=== PATIENT | female | born 1990 | race Caucasian/White ===

== ENCOUNTER 2021-12-28 18:14 | Emergency (ER) | payer OTHER ==
--- OUTSIDE RECORDS SUMMARY | 2021-12-28 18:20 | XMS REPORT | Continuity of Care Document ---
:1990 Author Organization [facility] t Address [address] [place] [address] Care Team Providers Name Role Phone Nai Jorgensen Attending Clinician Unavailable Nai Jorgensen Admitting Clinician Unavailable Payers Payer Name Policy Type Policy Number Effective Date Expiration Date S ource Problems This patient has no known problems. Allergies, Adverse Reactions, Alerts Allergy Allergy Status Severity Reaction(s) Onset Inactive Treating Comm ents Source Name Type Date Date Clinician No Known DA Active [facility] [address] [place] [address] No Known DA Active [id number] Medications This patient has no known medications. Procedures Procedure Date / Time Performed Performing Clinician Meka dane [id number] 2020-09-07 00:00:00 [facility]BPR [facility] [id number] 2020-09-07 00:00:00 DEBPR [facility] [id number] 2020-09-07 00:00:00 [facility] Encounters Start End Encounter Admission Attending Care Care Encounter Source Date/Time Date/Time Type Type Clinicians Facility Department ID 2020-09-06 Inpatient EL ANH Jorgensen LD [id number] [facility] 11:30:00 Nai Charles [facility] 2020-09-07 2020-09-10 Inpatient EM ANH Jorgensen OBPP [id number] [facility] 18:56:00 13:45:00 Nai Bonner [facility] Results Test Description Test Time Test Comments Results Result Comments Source FALLOPIAN TUBE,STERILIZATION 2020-09-09 12:54:00 Test Item Value Reference Range Interpretation Susan yost FALLOPIAN RUN TUBE,STERILIZATION DATE: 09/09/20 [facility] PAGE 1 RUN TIME: 5847 Specimen Inquiry RUN USER: INTERFACE (test code = ADELITA DAVIS) NT: BEKAH NINO CCT #: [id number] LOC: LilliKALANI U #: [id number] AGE/SX: 30/F ROOM: [facility] RE09/07/20JAKE DR: Nai Jorgensen MD : 86 BED: A DIS: STATUS: ADM IN TLOC: SPEC #: [id number] RECD: STATUS: KYARA RESarabjit #: [id number] CORBIN: 09/07/20- SUBM DR: Nai Jorgensen MD ENTERED: 09/08/20 SP TYPE: [facility]: ORDERED: LEVEL II SURGIC/2 CODES: [id number] - FALLOPIAN TU BE PROCEDURES: LEVEL II SURGIC (Incomplete) TISSUES: FALLOPIAN TUBE, NOS - RIGHT,LEFT FALLOPIAN T UBES CLINICAL HISTORY 30 year old, BTL (toma) FINAL DIAGNOSIS Right fallopian tube, salpingectom y: - unremarkable, completely transected fallopian tube Left fallopian tube, salpingectom y: - unremarkable, completely transected fallopian tube CPT: 25079 x2 ssa/wpd GROSS DESCRIPTION AN ATOMIC SOURCE OF TISSUE (per Requisition): Fallopian tube (2 containers) Each specimen is labeled with the patient's name and medical record number. Specimen #1 is designated "right fall opian tube" and consists of a 6.5 x 0.6 cm arreaga-pink fallopian tube segment with fimbriae. Secti oning reveals a pinpoint lumen. Section Leader sections are submitted in A1 to include entire fimb riae. Specimen #2 is designated "left fallopian tube" and consists of a 6.0 x 0.6 cm arreaga-pink fall opian tube segment with fimbriae. Sectioning reveals a pinpoint lumen. Section Leader sectio ns are submitted in B1 to include entire fimbriae. travis/toma 09/08/20 CONTINUED ON NEXT PAGE RUN DATE: 09/09/20 [facility] PAGE 2 RUN TIME: 7 Specimen Inquiry RUN USER: INTERFACE SPEC #: [id number] PATIENT: BEKAH NINO #[id number] (Continued) ------ Signed Homero Colon 09/09/20 1254 END OF REPORT COMPREHENSIVE METABOLIC [id number] 07:16:00 Test Item Value Reference Range Interpretation Comments SODIUM (test code = NA) 140 mEq/L 135-145 N POTASSIUM (test code = K) 4.5 mEq/L 3.5-5.0 N CHLORIDE (test code = CL) 105 mEq/L 100-115 N CARBON DIOXIDE (test code = CO2) 26 mEq/L 22-31 N ANION GAP (test code = GAP) 14.00 10-20 N GLUCOSE (test code = GLU) 94 mg/dL 65-110 N BLOOD UREA NITROGEN (test code = 12 mg/dL 7-18 N BUN) GLOMERULAR FILTRATION RATE (test 97 ml/min >60 N code = GFR) CREATININE (test code = CREAT) 0.7 mg/dL 0.5-1.0 N TOTAL PROTEIN (test code = PROT) 5.7 gm/dL 6.3-8.2 L ALBUMIN (test code = ALB) 2.3 gm/dL 3.4-4.8 L CALCIUM (test code = CA) 7.5 mg/dL 8.4-10.2 L BILIRUBIN TOTAL (test code = 0.2 mg/dL 0.2-1.0 N BILT) SGOT/AST (test code = AST) 20 units/L 15-37 N SGPT/ALT (test code = ALT) 11 units/L 12-78 L ALKALINE PHOSPHATASE TOTAL (test 231 units/L 46-116 H code = ALKP) CBC W/AUTO [id number] 06:56:00 Test Item Value Reference Range Interpretation Comments WHITE BLOOD CELL (test code = WBC) 15.5 K/mm3 6.5-12.3 H RED BLOOD CELL (test code = RBC) 3.54 M/mm3 3.51-4.69 N HEMOGLOBIN (test code = HGB) 8.9 g/dL 10.1-13.8 L HEMATOCRIT (test code = HCT) 28.5 % 32.5-41.8 L MEAN CELL VOLUME (test code = MCV) 80.5 fL 84.6-96.6 L MEAN CELL HGB (test code = MCH) 25.1 pg 27.3-33.9 L MEAN CELL HGB CONCETRATION (test 31.2 gm/dL 32.0-34.2 L code = MCHC) RED CELL DISTRIBUTION WIDTH (test 17.9 % 12.2-16.3 H code = RDW) PLATELET COUNT (test code = PLT) 168 K/mm3 134-363 N IMMATURE PLATELET FRACTION (test 23.5 % 0.0-10.8 H code = IPF) NEUTROPHIL % (test code = NT%) 73.1 % 57.9-77.3 N LYMPHOCYTE % (test code = LY%) 15.8 % 14.5-29.7 N MONOCYTE % (test code = MO%) 10.1 % 3.6-10.2 N EOSINOPHIL % (test code = EO%) 0.1 % 0.0-3.0 N BASOPHIL % (test code = BA%) 0.2 % 0.1-0.9 N NEUTROPHIL # (test code = NT#) 11.3 K/mm3 LYMPHOCYTE # (test code = LY#) 2.5 K/mm3 MONOCYTE # (test code = MO#) 1.6 K/mm3 EOSINOPHIL # (test code = EO#) 0.02 K/mm3 BASOPHIL # (test code = BA#) 0.0 K/mm3 RBC MORPHOLOGY REQUIRED (test code NORMAL NORMAL = RBCM) PLATELET MORPHOLOGY REQUIRED (test NORMAL NORMAL code = PLTMR) CBC W/AUTO [id number] 18:58:00 Test Item Value Reference Range Interpretation Comments WHITE BLOOD CELL (test code = WBC) 14.8 K/mm3 6.5-12.3 H RED BLOOD CELL (test code = RBC) 3.74 M/mm3 3.51-4.69 N HEMOGLOBIN (test code = HGB) 9.2 g/dL 10.1-13.8 L HEMATOCRIT (test code = HCT) 29.4 % 32.5-41.8 L MEAN CELL VOLUME (test code = MCV) 78.6 fL 84.6-96.6 L MEAN CELL HGB (test code = MCH) 24.6 pg 27.3-33.9 L MEAN CELL HGB CONCETRATION (test 31.3 gm/dL 32.0-34.2 L code = MCHC) RED CELL DISTRIBUTION WIDTH (test 17.5 % 12.2-16.3 H code = RDW) PLATELET COUNT (test code = PLT) 142 K/mm3 134-363 N NEUTROPHIL % (test code = NT%) 76.2 % 57.9-77.3 N LYMPHOCYTE % (test code = LY%) 14.5 % 14.5-29.7 N MONOCYTE % (test code = MO%) 8.3 % 3.6-10.2 N EOSINOPHIL % (test code = EO%) 0.1 % 0.0-3.0 N BASOPHIL % (test code = BA%) 0.2 % 0.1-0.9 N NEUTROPHIL # (test code = NT#) 11.3 K/mm3 LYMPHOCYTE # (test code = LY#) 2.1 K/mm3 MONOCYTE # (test code = MO#) 1.2 K/mm3 EOSINOPHIL # (test code = EO#) 0.02 K/mm3 BASOPHIL # (test code = BA#) 0.0 K/mm3 RBC MORPHOLOGY REQUIRED (test code NORMAL NORMAL = RBCM) PLATELET MORPHOLOGY REQUIRED (test NORMAL NORMAL code = PLTMR) CLOTTED. NOTIFIED [facility] METABOLIC [id number] 17:57:00 Test Item Value Reference Range Interpretation Comments SODIUM (test code = NA) 135 mEq/L 135-145 N POTASSIUM (test code = K) 4.4 mEq/L 3.5-5.0 N CHLORIDE (test code = CL) 103 mEq/L 100-115 N CARBON DIOXIDE (test code = CO2) 21 mEq/L 22-31 L ANION GAP (test code = GAP) 15.40 10-20 N GLUCOSE (test code = GLU) 106 mg/dL 65-110 N BLOOD UREA NITROGEN (test code = 14 mg/dL 7-18 N BUN) GLOMERULAR FILTRATION RATE (test 97 ml/min >60 N code = GFR) CREATININE (test code = CREAT) 0.7 mg/dL 0.5-1.0 N TOTAL PROTEIN (test code = PROT) 5.1 gm/dL 6.3-8.2 L ALBUMIN (test code = ALB) 2.1 gm/dL 3.4-4.8 L CALCIUM (test code = CA) 7.2 mg/dL 8.4-10.2 L BILIRUBIN TOTAL (test code = 0.2 mg/dL 0.2-1.0 N BILT) SGOT/AST (test code = AST) 24 units/L 15-37 N SGPT/ALT (test code = ALT) 12 units/L 12-78 N ALKALINE PHOSPHATASE TOTAL (test 228 units/L 46-116 H code = ALKP) [id number] 17:57:00 Test Item Value Reference Range Interpretation Comments MAGNESIUM (test 5.5 mg/dL 1.8-2.4 HH RESULTS VERI FIED BY code = MAG) REPEAT ANALYSIS RESULTS CALLED TO MARITA BALDERRAMA BACK & CONFIRME D? YES.BY F.LAB.TTT 09/08 6085. COMPREHENSIVE METABOLIC [id number] 07:59:00 Test Item Value Reference Range Interpretation Comments SODIUM (test code = NA) 136 mEq/L 135-145 N POTASSIUM (test code = K) 4.7 mEq/L 3.5-5.0 N CHLORIDE (test code = CL) 105 mEq/L 100-115 N CARBON DIOXIDE (test code = CO2) 21 mEq/L 22-31 L ANION GAP (test code = GAP) 14.50 10-20 N GLUCOSE (test code = GLU) 106 mg/dL 65-110 N BLOOD UREA NITROGEN (test code = 16 mg/dL 7-18 N BUN) GLOMERULAR FILTRATION RATE (test 97 ml/min >60 N code = GFR) CREATININE (test code = CREAT) 0.7 mg/dL 0.5-1.0 N TOTAL PROTEIN (test code = PROT) 5.1 gm/dL 6.3-8.2 L ALBUMIN (test code = ALB) 2.1 gm/dL 3.4-4.8 L CALCIUM (test code = CA) 8.0 mg/dL 8.4-10.2 L BILIRUBIN TOTAL (test code = 0.4 mg/dL 0.2-1.0 BILT) SGOT/AST (test code = AST) 21 units/L 15-37 SGPT/ALT (test code = ALT) 14 units/L 12-78 N ALKALINE PHOSPHATASE TOTAL (test 258 units/L 46-116 H code = ALKP) LACTIC DEHYDROGENASE(LDH)2020-09-08 07:59:00 Test Item Value Reference Range Interpretation Comments LACTIC DEHYDROGENASE(LDH) (test 235 units/L 81-234 H code = LDH) [id number] 07:59:00 Test Item Value Reference Range Interpretation Comments MAGNESIUM (test code = MAG) 4.5 mg/dL 1.8-2.4 H CBC W/AUTO [id number] 07:49:00 Test Item Value Reference Range Interpretation Comments WHITE BLOOD CELL (test 19.7 K/mm3 6.5-12.3 H code = WBC) RED BLOOD CELL (test 3.87 M/mm3 3.51-4.69 N code = RBC) HEMOGLOBIN (test code = 9.5 g/dL 10.1-13.8 L HGB) HEMATOCRIT (test code = 30.1 % 32.5-41.8 L HCT) MEAN CELL VOLUME (test 77.8 fL 84.6-96.6 L code = MCV) MEAN CELL HGB (test code 24.5 pg 27.3-33.9 L = MCH) MEAN CELL HGB 31.6 gm/dL 32.0-34.2 L CONCETRATION (test code = MCHC) RED CELL DISTRIBUTION 17.1 % 12.2-16.3 H WIDTH (test code = RDW) PLATELET COUNT (test 128 K/mm3 134-363 L code = PLT) MEAN PLATELET VOLUME TEST NOT PERFORMED fL 9.2-12.7 (test code = MPV) NEUTROPHIL % (test code 84.1 % 57.9-77.3 H = NT%) LYMPHOCYTE % (test code 7.9 % 14.5-29.7 L = LY%) MONOCYTE % (test code = 6.7 % 3.6-10.2 N MO%) EOSINOPHIL % (test code 0.0 % 0.0-3.0 N = EO%) BASOPHIL % (test code = 0.3 % 0.1-0.9 N BA%) NEUTROPHIL # (test code 16.6 K/mm3 = NT#) LYMPHOCYTE # (test code 1.6 K/mm3 = LY#) MONOCYTE # (test code = 1.3 K/mm3 MO#) EOSINOPHIL # (test code 0 K/mm3 = EO#) BASOPHIL # (test code = 0.1 K/mm3 BA#) RBC MORPHOLOGY REQUIRED NORMAL NORMAL (test code = RBCM) PLATELET MORPHOLOGY NORMAL NORMAL REQUIRED (test code = PLTMR) AG HEPATITIS B [id number] 20:34:00 Test Item Value Reference Range Interpretation Comments AG HEPATITIS B SURFACE (test code NONREACTIVE NONREACTIVE = HBSAG) AB HEPATITIS C [id number] 20:34:00 Test Item Value Reference Range Interpretation Comments AB HEPATITIS C (test code = NONREACTIVE NONREACTIVE HCVAB) SIGNAL TO CUTOFF (test code = <0.02 <0.80 N CUTOFF) AB [id number] 20:34:00 Test Item Value Reference Range Interpretation Comments AB TREPONEMA (test code = TREPAB) NONREACTIVE NONREACTIVE AG HEPATITIS B [id number] 20:03:00 Test Item Value Reference Range Interpretation Comments AG HEPATITIS B SURFACE (test code NONREACTIVE NONREACTIVE = HBSAG) AB HEPATITIS C [id number] 20:03:00 Test Item Value Reference Range Interpretation Comments AB HEPATITIS C (test code = HCVAB) NONREACTIVE SIGNAL TO CUTOFF (test code = CUTOFF) <0.80 AB [id number] 20:03:00 Test Item Value Reference Range Interpretation Comments AB TREPONEMA (test code = TREPAB) NONREACTIVE NONREACTIVE UR PROTEIN/CREATININE [id number] 17:50:00 Test Item Value Reference Range Interpretation Comments UR PROTEIN RANDOM 1251.9 mg/dL (test code = PROTU) UR CREATININE 267.8 mg/dL RANDOM (test code = CREATU) PROTEIN/CREATININE 4674.7 <200 H RESULTS V ERIFIED BY RATIO (test code = mg/gcrea REPEAT AN ALYSISMADE P/CRATIO) DILUTION 1:10RE SULTS CALLED TO ELI Hester ACK & CONFIRMED? YESB Y F.LAB.TTT 09/07 1749 URIC [id number] 17:04:00 Test Item Value Reference Range Interpretation Comments URIC ACID (test code = URIC) 5.7 mg/dL 2.6-6.0 N COMPREHENSIVE METABOLIC [id number] 17:04:00 Test Item Value Reference Range Interpretation Comments SODIUM (test code = NA) 142 mEq/L 135-145 N POTASSIUM (test code = K) 4.4 mEq/L 3.5-5.0 N CHLORIDE (test code = CL) 109 mEq/L 100-115 N CARBON DIOXIDE (test code = CO2) 22 mEq/L 22-31 N ANION GAP (test code = GAP) 15.50 10-20 N GLUCOSE (test code = GLU) 82 mg/dL 65-110 N BLOOD UREA NITROGEN (test code = 19 mg/dL 7-18 H BUN) GLOMERULAR FILTRATION RATE (test 97 ml/min >60 N code = GFR) CREATININE (test code = CREAT) 0.7 mg/dL 0.5-1.0 N TOTAL PROTEIN (test code = PROT) 5.7 gm/dL 6.3-8.2 L ALBUMIN (test code = ALB) 2.4 gm/dL 3.4-4.8 L CALCIUM (test code = CA) 8.4 mg/dL 8.4-10.2 N BILIRUBIN TOTAL (test code = 0.2 mg/dL 0.2-1.0 N BILT) SGOT/AST (test code = AST) 13 units/L 15-37 L SGPT/ALT (test code = ALT) 10 units/L 12-78 L ALKALINE PHOSPHATASE TOTAL (test 312 units/L 46-116 H code = ALKP) CBC W/AUTO [id number] 16:40:00 Test Item Value Reference Range Interpretation Comments WHITE BLOOD CELL (test code = WBC) 8.7 K/mm3 6.5-12.3 N RED BLOOD CELL (test code = RBC) 4.22 M/mm3 3.51-4.69 N HEMOGLOBIN (test code = HGB) 10.4 g/dL 10.1-13.8 N HEMATOCRIT (test code = HCT) 32.6 % 32.5-41.8 N MEAN CELL VOLUME (test code = MCV) 77.3 fL 84.6-96.6 L MEAN CELL HGB (test code = MCH) 24.6 pg 27.3-33.9 L MEAN CELL HGB CONCETRATION (test 31.9 gm/dL 32.0-34.2 L code = MCHC) RED CELL DISTRIBUTION WIDTH (test 16.9 % 12.2-16.3 H code = RDW) PLATELET COUNT (test code = PLT) 120 K/mm3 134-363 L NEUTROPHIL % (test code = NT%) 66.1 % 57.9-77.3 N LYMPHOCYTE % (test code = LY%) 18.4 % 14.5-29.7 N MONOCYTE % (test code = MO%) 13.1 % 3.6-10.2 H EOSINOPHIL % (test code = EO%) 0.5 % 0.0-3.0 N BASOPHIL % (test code = BA%) 0.6 % 0.1-0.9 N NEUTROPHIL # (test code = NT#) 5.8 K/mm3 LYMPHOCYTE # (test code = LY#) 1.6 K/mm3 MONOCYTE # (test code = MO#) 1.1 K/mm3 EOSINOPHIL # (test code = EO#) 0.04 K/mm3 BASOPHIL # (test code = BA#) 0.1 K/mm3 RBC MORPHOLOGY REQUIRED (test code NORMAL NORMAL = RBCM) PLATELET MORPHOLOGY REQUIRED (test NORMAL NORMAL code = PLTMR)
[2021-12-28] MEDS ORDERED: NA CHLORIDE 0.9% 1,000 ML ONE (18:56)
[2021-12-28] MEDS ORDERED: ALBUTEROL 2.5 MG/3 ML NEB SOL ONE (18:56)
[2021-12-28] MEDS ORDERED: IPRATROPIUM BROM 0.5MG/2.5ML ONE (18:56)
[2021-12-28] MEDS ORDERED: dexAMETHasone 10 MG/ML VIAL ONE (18:56)
[2021-12-28] MEDS ORDERED: HYDROCODONE/CHLORPHEN 5 ML/OSYR ONE (18:56)
[2021-12-28 19:41] LABS: Absolute Lymphocytes (CBC) 0.9 K/uL (0.7-4.9); Hematocrit 40.1 % (36.0-45.0); Lymphocytes % 9.7 % (15.3-44.8); MCV 86.9 fL (80-100); MPV 10.5 fL (7.6-11.3); RBC Red Blood Cell Count 4.62 M/uL (3.86-4.86)
[2021-12-28 20:03] LABS: Potassium 3.9 mmol/L (3.5-5.1); Troponin High Sensitivity 3.9 pg/mL (<58.9)
--- NOTE | 2021-12-28 20:15 | RAD REPORT ---
EXAM DESCRIPTION: RAD - Chest Single View - 12/28/2021 8:03 pm CLINICAL HISTORY: SOB COMPARISON: None TECHNIQUE: AP portable chest image was obtained 12/28/2021 8:03 pm . FINDINGS: Lungs are clear. Heart and vasculature are normal. No measurable pleural effusion and no p neumothorax. No acute bony abnormality seen. No acute aortic findings suspected. IMPRESSION: No acute cardiopulmonary process.
--- NOTE | 2021-12-28 20:31 | ER ---
Nurse's Notes [facility] Name: Sam Barbour Age: 31 yrs Sex: Female : 1990 Arrival Date: 12/28/2021 Time: 18:18 Bed 9 Private MD: Diagnosis: Allergic rhinitis, unspecified;Syncope Near Presentation: 12/28 18:28 Chief complaint: Patient states: Around 1500 pt used humidifier \T\ took allergy relief ld1 pill with sinex severe to relieve chest congestion and sinus congestion. After taking medications pt reports getting shaky and lightheaded, turned pale and feels like she could faint. Coronavirus screen: At this time, the client does not indicate any symptoms associated with coronavirus-19. Ebola Screen: No symptoms or risks identified at this time. Initial Sepsis Screen: Does the patient meet any 2 criteria? No. Patient's initial sepsis screen is negative. Does the patient have a suspected source of infection? No. Patient's initial sepsis screen is negative. Risk Assessment: Do you want to hurt yourself or someone else? Patient reports no desire to harm self or others. Onset of symptoms was December 28, 2021 at 18:30. 18:28 Method Of Arrival: Wheelchair ld1 18:28 Acuity: PARKER 3 ld1 Triage Assessment: 18:30 General: Appears in no apparent distress. comfortable, Behavior is calm, cooperative, ld1 appropriate for age. Pain: Denies pain. EENT: No signs and/or symptoms were reported regarding the EENT system. Neuro: Level of Consciousness is awake, alert, obeys commands, Oriented to person, place, time, situation, Appropriate for age. Cardiovascular: Capillary refill < 3 seconds Patient's skin is warm and dry. Respiratory: Reports shortness of breath at rest on exertion Airway is patent Respiratory effort is even, unlabored, Onset: The symptoms/episode began/occurred just prior to arrival, the patient has moderate shortness of breath Denies. GI: Abdomen is round non-distended. : No signs and/or symptoms were reported regarding the genitourinary system. Derm: No signs and/or symptoms reported regarding the dermatologic system. Musculoskeletal: No signs and/or symptoms reported regarding the musculoskeletal system. GIVER: 18:30 LMP 12/28/2021 ld1 Historical: - Allergies: 18:30 No Known Allergies; ld1 - PMHx: 18:30 Pre eclampsia; ld1 - PSHx: 18:30 section; ld1 - Immunization history:: Adult Immunizations up to date, Client reports receiving the 2nd dose of the Covid vaccine. - Social history:: Smoking status: Patient denies any tobacco usage or history of. Patient/guardian denies using alcohol. Screenin:21 Abuse screen: Denies threats or abuse. Nutritional screening: No deficits noted. em6 Tuberculosis screening: No symptoms or risk factors identified. Fall Risk IV access (20 points). Total Mancilla Fall Scale indicates No Risk (0-24 pts). Assessment: 18:45 Reassessment: see triage assessment. Cardiovascular: Patient's skin is warm and dry. em6 Respiratory: Airway is patent Respiratory effort is even, unlabored, Respiratory pattern is regular, symmetrical, Breath sounds are clear bilaterally. 19:39 Cardiovascular: Rhythm is sinus rhythm. em6 19:45 Reassessment: No changes from previously documented assessment. Patient and/or family em6 updated on plan of care and expected duration. Pain level reassessed. Patient is alert, oriented x 3, equal unlabored respirations, skin warm/dry/pink. 20:37 Reassessment: No changes from previously documented assessment. Patient and/or family em6 updated on plan of care and expected duration. Pain level reassessed. Patient is alert, oriented x 3, equal unlabored respirations, skin warm/dry/pink. Patient states symptoms have improved. Vital Signs: 18:28 BP 148 / 94; Pulse 93; Resp 18; Temp 98.1(O); Pulse Ox 99% on R/A; Weight 79.38 kg; ld1 Height 5 ft. 7 in. (170.18 cm); Pain 0/10; 20:55 BP 134 / 85; Pulse 91; Resp 16; Pulse Ox 100% on R/A; em6 18:28 Body Mass Index 27.41 (79.38 kg, 170.18 cm) ld1 ED Course: 18:18 Patient arrived in ED. mr 18:30 Triage completed. ld1 18:30 Arm band placed on right wrist. ld1 18:42 Jeancarlos Fields NP is PHCP. pm1 18:42 Darien Abdul DO is Attending Physician. pm1 18:42 Deysi Higginbotham, RN is Primary Nurse. em6 19:21 Bed in low position. Call light in reach. Side rails up X2. case monitor on. Pulse em6 ox on. NIBP on. Warm blanket given. 19:31 Inserted saline lock: 20 gauge in right antecubital area, using aseptic technique. oe Blood collected. 19:32 Basic Metabolic Panel Sent. oe 19:32 CBC with Diff Sent. oe 19:32 Troponin HS Sent. oe 19:39 Basic Metabolic Panel Sent. em6 19:39 CBC with Diff Sent. em6 19:39 Troponin HS Sent. em6 20:04 XRAY Chest (1 view) In Process Unspecified. EDMS 20:38 No provider procedures requiring assistance completed. em6 20:57 IV discontinued, intact, bleeding controlled, No redness/swelling at site. Pressure em6 dressing applied. Administered Medications: 19:19 Drug: AtroVENT (ipratropium) Aerosol 0.5 mg Route: Inhalation; em6 19:45 Follow up: Response: No adverse reaction em6 19:20 Drug: Albuterol 2.5 mg Route: Inhalation; em6 19:45 Follow up: Response: No adverse reaction em6 19:39 Drug: Tussionex Pennkinetic ER (chlorpheniramine-hydrocodone) Suspension 5 ml Route: PO;em6 20:20 Follow up: Response: No adverse reaction em6 19:39 Drug: Decadron - Dexamethasone 10 mg Route: IVP; Site: right antecubital; em6 20:20 Follow up: Response: No adverse reaction em6 19:39 Drug: NS 0.9% 1000 ml Route: IV; Rate: 1000 ml; Site: right antecubital; em6 20:38 Follow up: Response: No adverse reaction; IV Status: Completed infusion; IV Intake: em6 1000ml Medication: 20:38 VIS not applicable for this client. em6 Intake: 20:38 IV: 1000ml; Total: 1000ml. em6 Outcome: 20:31 Discharge ordered by . pm1 20:56 Discharged to home ambulatory. em6 20:56 Condition: stable 20:56 Discharge instructions given to patient, family, Instructed on discharge instructions, follow up and referral plans. medication usage, Demonstrated understanding of instructions, follow-up care, medications, Prescriptions given X 3. 20:57 Patient left the ED. em6 Signatures: Dispatcher [employer] ARIEL JayaDanielle mr RyleeJeancarlos orozco, JÚNIOR CABLE MECHANIC pm1 Dale Moctezuma Lauren, RN RN ld1 Deysi Higginbotham RN RN em6
--- NOTE | 2021-12-28 20:31 | EDPHYS ---
Physician Documentation [facility] Name: Sam Barbour Age: 31 yrs Sex: Female : 1990 Arrival Date: 12/28/2021 Time: 18:18 Bed 9 Private MD: ED Physician Darien Abdul HPI: 12/28 18:51 This 31 yrs old Female presents to ER via Wheelchair with complaints of Breathing pm1 Difficulty. 18:51 The patient has shortness of breath at rest. Onset: The symptoms/episode began/occurred pm1 today. Duration: The symptoms are continuous. The patient's shortness of breath is alleviated by OTC meds. Associated signs and symptoms: Pertinent positives: near syncope, Pertinent negatives: chest pain, fever. Severity of symptoms: in the emergency department the symptoms have improved. patient reports nasal congestion seasonally. The patient has not recently seen a physician. -year-old female presents to the ER with complaints of difficulty breathing primarily through her nose. Patient reports seasonal allergies during this time of the year that improves typically with [id number] medications with sinus medications and antihistamines needs. Patient reports today that she took several medications and they did not help, additionally she tried to get relief with a hot shower but started experiencing near syncope. noticed that she appeared pale when she was having a near syncopal episode and brought her into the ER for evaluation and treatment.. 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 - Social history:: Smoking status: Patient denies any tobacco usage or history of. Patient/guardian denies using alcohol. ROS: 18:51 Constitutional: Negative for fever, chills, and weight loss. pm1 18:51 Cardiovascular: Negative for chest pain, palpitations, and edema. 18:51 Abdomen/GI: Negative for abdominal pain, nausea, vomiting, diarrhea, and constipation, Back: Negative for injury and pain, MS/Extremity: Negative for injury and deformity, Skin: Negative for injury, rash, and discoloration. 18:51 ENT: Positive for nasal congestion, Negative for ear pain. 18:51 Respiratory: Positive for shortness of breath. 18:51 Neuro: Positive for near syncope. 18:51 All other systems are negative. Exam: 18:51 Constitutional: This is a well developed, well nourished patient who is awake, alert, pm1 and in no acute distress. Head/Face: Normocephalic, atraumatic. 18:51 Back: No spinal tenderness. No costovertebral tenderness. Full range of motion. Skin: Warm, dry with normal turgor. Normal color with no rashes, no lesions, and no evidence of cellulitis. MS/ Extremity: Pulses equal, no cyanosis. Neurovascular intact. Full, normal range of motion. 18:51 Eyes: Exam is negative for acute changes, Periorbital structures: appear normal, no acute changes, Extraocular movements: no acute changes, Conjunctiva: no acute changes, no injection. 18:51 ENT: Exam is negative for acute changes, Nose: no acute changes, Mouth: no acute changes, Lips: normal, moist, Oral mucosa: normal, pink and intact, moist. 18:51 Cardiovascular: Exam negative for acute changes, Rate: normal, Rhythm: regular, Pulses: no pulse deficits are appreciated, Heart sounds: normal, normal S1and S2. 18:51 Respiratory: Exam negative for acute changes, respiratory distress, shortness of breath, Breath sounds: are clear throughout. 18:51 Abdomen/GI: Exam negative for acute changes, Inspection: abdomen appears normal, Palpation: abdomen is soft and non-tender, in all quadrants. 18:51 Neuro: Exam negative for acute changes, Orientation: is normal, Mentation: is normal, Motor: is normal, moves all fours. Vital Signs: 18:28 BP 148 / 94; Pulse 93; Resp 18; Temp 98.1(O); Pulse Ox 99% on R/A; Weight 79.38 kg; ld1 Height 5 ft. 7 in. (170.18 cm); Pain 0/10; 20:55 BP 134 / 85; Pulse 91; Resp 16; Pulse Ox 100% on R/A; em6 18:28 Body Mass Index 27.41 (79.38 kg, 170.18 cm) ld1 MDM: 18:42 Patient medically screened. pm1 20:27 Data reviewed: vital signs. Data interpreted: Pulse oximetry: on room air is 99 %. pm1 Interpretation: normal. Counseling: I had a detailed discussion with the patient and/or guardian regarding: the historical points, exam findings, and any diagnostic results supporting the discharge/admit diagnosis, lab results, radiology results, the need for outpatient follow up, to return to the emergency department if symptoms worsen or persist or if there are any questions or concerns that arise at home. 12/28 18:51 Order name: Basic Metabolic Panel; Complete Time: 20:15 pm1 12/28 18:51 Order name: CBC with Diff; Complete Time: 19:59 pm1 12/28 18:51 Order name: Troponin HS; Complete Time: 20:15 pm1 12/28 18:51 Order name: XRAY Chest (1 view); Complete Time: 20:19 pm1 12/28 18:51 Order name: EKG; Complete Time: 18:52 pm1 12/28 18:51 Order name: Cardiac monitoring; Complete Time: 19:39 pm1 12/28 18:51 Order name: EKG - Nurse/Tech; Complete Time: 19:20 pm1 12/28 18:51 Order name: IV Saline Lock; Complete Time: 19:31 pm1 12/28 18:51 Order name: Labs collected and sent; Complete Time: 19:31 pm1 12/28 18:51 Order name: O2 Per Protocol; Complete Time: 19:20 pm1 12/28 18:51 Order name: O2 Sat Monitoring; Complete Time: 19:20 pm1 EC:29 Rate is 90 beats/min. Rhythm is regular, Normal Sinus Rhythm with No ectopy. QRS Waldo pm1 is Normal. ME interval is normal. QRS interval is normal. QT interval is normal. No Q waves. T waves are Normal. No ST changes noted. Clinical impression: Normal ECG. Administered Medications: 19:19 Drug: AtroVENT (ipratropium) Aerosol 0.5 mg Route: Inhalation; em6 19:45 Follow up: Response: No adverse reaction em6 19:20 Drug: Albuterol 2.5 mg Route: Inhalation; em6 19:45 Follow up: Response: No adverse reaction em6 19:39 Drug: Tussionex Pennkinetic ER (chlorpheniramine-hydrocodone) Suspension 5 ml Route: PO;em6 20:20 Follow up: Response: No adverse reaction em6 19:39 Drug: Decadron - Dexamethasone 10 mg Route: IVP; Site: right antecubital; em6 20:20 Follow up: Response: No adverse reaction em6 19:39 Drug: NS 0.9% 1000 ml Route: IV; Rate: 1000 ml; Site: right antecubital; em6 20:38 Follow up: Response: No adverse reaction; IV Status: Completed infusion; IV Intake: em6 1000ml Disposition: 21:17 Co-signature as Attending Physician, Darien Abdul DO I was immediately available on-site ms3 in the Emergency Department for consultation in the care of the patient.. Disposition Summary: 12/28/21 20:31 Discharge Ordered Location: Home pm1 Problem: new pm1 Symptoms: have improved pm1 Condition: Stable pm1 Diagnosis - Allergic rhinitis, unspecified pm1 - Syncope Near pm1 Followup: pm1 - With: Emergency Department - When: As needed - Reason: Worsening of condition Followup: pm1 - With: Private Physician - When: 2 - 3 days - Reason: Recheck today's complaints, Continuance of care, Re-evaluation by your physician Discharge Instructions: - Discharge Summary Sheet pm1 - Allergies, Adult pm1 - Near-Syncope pm1 - Allergic Rhinitis, Adult pm1 Forms: - Medication Reconciliation Form pm1 - Thank You Letter pm1 - Antibiotic Education pm1 - Prescription Opioid Use pm1 Prescriptions: - Medrol (Noah) 4 mg Oral Tablets, Dose Pack - take 1 tablet by ORAL route as directed - follow package instructions; 1 pm1 packet; Refills: 0, Product Selection Permitted - Ventolin HFA 90 mcg/actuation Inhalation HFA aerosol inhaler - inhale 1 puff by INHALATION route every 4-6 hours As needed; 1 Inhaler; pm1 Refills: 0, Product Selection Permitted - Guaifenesin AC 10-100 mg/5 mL Oral Liquid - take 10 milliliters by ORAL route every 4 hours As needed; 240 milliliter; pm1 Refills: 0, Product Selection Permitted Signatures: Dispatcher [employer] Jeancarlos Silva, JÚNIOR MARINE ENGINEER CPVEC pm1 Darien Abdul DO DO ms3 Trista Shelton RN RN ld1 Deysi Higginbotham RN RN em6
[2021-12-28 21:45] VITALS: TEMP 98.1
[2021-12-28 21:55] VITALS: BP 134/85; O2SAT 100
--- NOTE | 2021-12-29 14:31 | EKG ---
Test Date: 2021-12-28 Test Time: 19:16:57 Radio Time Sales Supervisor: MESHA MEASUREMENT RESULTS: Intervals: Rate: 86 IN: 160 QRSD: 82 QT: 378 QTc: 452 [place]: P: 80 IN: 160 QRS: 103 T: 22 INTERPRETIVE STATEMENTS: Sinus rhythm with fusion complexes Rightward axis ST abnormality, possible digitalis effect Abnormal ECG No previous ECG available for comparison Electronically Signed On 12-29-21 14:28:34 CDT by Sachin Jones
--- NOTE | 2021-12-29 14:31 | EKG ---
Test Date: 2021-12-28 Test Time: 19:18:19 Customer Account Manager: MESHA MEASUREMENT RESULTS: Intervals: Rate: 90 VA: 156 QRSD: 88 QT: 424 QTc: 518 [place]: P: 82 VA: 156 QRS: 91 T: 83 INTERPRETIVE STATEMENTS: Normal sinus rhythm Rightward axis ST abnormality, possible digitalis effect Prolonged QT Abnormal ECG Compared to ECG 12/28/2021 19:16:57 Prolonged QT interval now present Fusion complex(es) no longer present ST (T wave) deviation still present Electronically Signed On 12-29-21 14:28:32 CDT by Sachin Jones
== END 2021-12-28 20:57 | disposition home or self-care (01) ==
LOC: ER 18:14
DX: J30.9 Allergic rhinitis, unspecified (principal); R55 Syncope and collapse; R06.02 Shortness of breath
CPT/HCPCS: 96361; 93005 ×2; 85025; 80048; 36415; 84484; 71045; 96374; 99285; J1100; J7030

== ENCOUNTER 2022-01-22 14:50 | Emergency (ER) | payer OTHER ==
--- OUTSIDE RECORDS SUMMARY | 2022-01-22 14:54 | XMS REPORT | Continuity of Care Document ---
:1990 Author Organization [facility] t Address [address] [place] [address] Care Team Providers Name Role Phone Nai [...] [facility] 00 [facility] No Known DA Active U [facility] Allergie 09-07 [facility] [address] Medications This patient has no known medications. Procedures Procedure Date / Time Performed Performing Clinician Jayce vela [id number] 2020-09-07 00:00:00 [facility] [id number] 2020-09-07 00:00:00 [facility] [id number] 2020-09-07 00:00:00 [facility] Encounters Start End Encounter Admission Attending Care Care Encounter Source Date/Time Date/Time Type Type Clinicians Facility Department ID 2020-09-06 Inpatient EL ANH Jorgensen LD [id number] [facility] 11:30:00 Nai [facility] s [facility] 2020-09-07 2020-09-10 Inpatient EM ANH Jorgensen OBPP [id number] [facility] 18:56:00 13:45:00 Nai Bonner [facility] Results Test Description Test Time Test Comments Results Result Comments Source FALLOPIAN TUBE,STERILIZATION 2020-09-09 12:54:00 Test Item Value Reference Range Interpretation Commdane yost FALLOPIAN RUN TUBE,STERILIZATION DATE: 09/09/20 [facility] PAGE 1 RUN TIME: 1457 Specimen Inquiry RUN USER: INTERFACE (test code = ADELITA DAVIS) NT: BEKAH NINO CCT #: [id number] LOC: LilliKALANI U #: [id number] AGE/SX: 30/F ROOM: [facility] RE09/07/20[facility] DR: Nai Jorgensen MD : [birth year] BED: A DIS: STATUS: ADM IN TLOC: SPEC #: [id number] RECD: STATUS: KYARA WILLAMS #: [id number] CORBIN: 09/07/20- SUBM DR: Nai Jorgensen MD ENTERED: 09/08/20 SP TYPE: FALLST OT DR: ORDERED: LEVEL II SURGIC/2 CODES: [id number] - FALLOPIAN TU BE PROCEDURES: LEVEL II SURGIC (Incomplete) TISSUES: FALLOPIAN TUBE, NOS - RIGHT,LEFT FALLOPIAN T UBES CLINICAL HISTORY 30 year old, BTL (toma) FINAL DIAGNOSIS Right fallopian tube, salpingectom y: - unremarkable, completely transected fallopian tube Left fallopian tube, salpingectom y: - unremarkable, completely transected fallopian tube CPT: 48146 x2 ssa/wpd GROSS DESCRIPTION AN ATOMIC SOURCE OF TISSUE (per Requisition): Fallopian tube (2 containers) Each specimen is labeled with the patient's name and medical record number. Specimen #1 is designated "right fall opian tube" and consists of a 6.5 x 0.6 cm arreaga-pink fallopian tube segment with fimbriae. Secti oning reveals a pinpoint lumen. Manager Database sections are submitted in A1 to include entire fimb riae. Specimen #2 is designated "left fallopian tube" and consists of a 6.0 x 0.6 cm arreaga-pink fall opian tube segment with fimbriae. Sectioning reveals a pinpoint lumen. Manager Database sectio ns are submitted in B1 to include entire fimbriae. travis/toma 09/08/20 CONTINUED ON NEXT PAGE RUN DATE: 09/09/20 [facility] PAGE 2 RUN TIME: 1456 Specimen Inquiry RUN USER: INTERFACE SPEC #: [id number] PATIENT: BEKAH NINO #[id number] (Continued) ------ Signed Homero Colon 09/09/20 1254 END OF REPORT COMPREHENSIVE METABOLIC [id number] 07:16:00 Test Item Value Reference Range Interpretation [...] 46-116 H code = ALKP) CBC W/AUTO [id number] 06:56:00 Test Item Value Reference Range Interpretation [...] NORMAL NORMAL code = PLTMR) CBC W/AUTO [id number] 18:58:00 Test Item Value Reference Range Interpretation [...] NORMAL NORMAL code = PLTMR) CLOTTED. NOTIFIED [facility] [id number] 17:57:00 Test Item Value Reference Range Interpretation [...] 228 units/L 46-116 H code = ALKP) [id number] 17:57:00 Test Item Value Reference Range Interpretation Comments MAGNESIUM (test 5.5 mg/dL 1.8-2.4 HH RESULTS VERI FIED BY code = MAG) REPEAT ANALYSIS RESULTS CALLED TO MARITA BALDERRAMA BACK & CONFIRME D? YES.BY F.LAB.TTT 09/08 1573. COMPREHENSIVE METABOLIC [id number] 07:59:00 Test Item Value Reference Range Interpretation [...] 235 units/L 81-234 H code = LDH) [id number] 07:59:00 Test Item Value Reference Range Interpretation Comments MAGNESIUM (test code = MAG) 4.5 mg/dL 1.8-2.4 H CBC W/AUTO [id number] 07:49:00 Test Item Value Reference Range Interpretation [...] (test code = PLTMR) AG HEPATITIS B [id number] 20:34:00 Test Item Value Reference Range Interpretation Comments AG HEPATITIS B SURFACE (test code NONREACTIVE NONREACTIVE = HBSAG) AB HEPATITIS C [id number] 20:34:00 Test Item Value Reference Range Interpretation Comments AB HEPATITIS C (test code = NONREACTIVE NONREACTIVE HCVAB) SIGNAL TO CUTOFF (test code = <0.02 <0.80 N CUTOFF) AB [id number] 20:34:00 Test Item Value Reference Range Interpretation Comments AB TREPONEMA (test code = TREPAB) NONREACTIVE NONREACTIVE AG HEPATITIS B [id number] 20:03:00 Test Item Value Reference Range Interpretation Comments AG HEPATITIS B SURFACE (test code NONREACTIVE NONREACTIVE = HBSAG) AB HEPATITIS C [id number] 20:03:00 Test Item Value Reference Range Interpretation Comments AB HEPATITIS C (test code = HCVAB) NONREACTIVE SIGNAL TO CUTOFF (test code = CUTOFF) <0.80 AB [id number] 20:03:00 Test Item Value Reference Range Interpretation Comments AB TREPONEMA (test code = TREPAB) NONREACTIVE NONREACTIVE UR PROTEIN/CREATININE [id number] 17:50:00 Test Item Value Reference Range Interpretation Comments UR PROTEIN RANDOM 1251.9 mg/dL (test code = PROTU) UR CREATININE 267.8 mg/dL RANDOM (test code = CREATU) PROTEIN/CREATININE 4674.7 <200 H RESULTS V ERIFIED BY RATIO (test code = mg/gcrea REPEAT AN ALYSISMADE P/CRATIO) DILUTION 1:10RE SULTS CALLED TO ELI Hester ACK & CONFIRMED? YESB Y F.LAB.TTT 09/07 1749 URIC [id number] 17:04:00 Test Item Value Reference Range Interpretation Comments URIC ACID (test code = URIC) 5.7 mg/dL 2.6-6.0 N COMPREHENSIVE METABOLIC [id number] 17:04:00 Test Item Value Reference Range Interpretation [...] 46-116 H code = ALKP) CBC W/AUTO [id number] 16:40:00 Test Item Value Reference Range Interpretation [...]
[2022-01-22] MEDS ORDERED: NA CHLORIDE 0.9% 1,000 ML ONE (15:51)
--- NOTE | 2022-01-22 16:05 | RAD REPORT ---
EXAM DESCRIPTION: RAD - Chest Single View - 01/22/2022 3:57 pm CLINICAL HISTORY: PALPITATIONS Chest pain. COMPARISON: Chest Single View dated 12/28/2021 FINDINGS: Portable technique limits examination quality. The lungs are grossly clear. The heart is normal in size. No displaced fractures. IMPRESSION: No acute intrathoracic process suspected.
[2022-01-22 16:20] LABS: Urine Blood Negative (Negative); Urine Glucose Negative (Negative); Urine Protein Negative (Negative); Urine Specific Gravity 1.015 (1.005-1.030)
[2022-01-22 16:25] LABS: Hematocrit 41.5 % (36.0-45.0); Lymphocytes % 11.7 % (15.3-44.8); MCV 86.4 fL (80-100); MPV 10.5 fL (7.6-11.3); RBC Red Blood Cell Count 4.81 M/uL (3.86-4.86)
[2022-01-22 16:37] LABS: Barbiturates NEGATIVE (NEGATIVE); Benzodiazepines NEGATIVE (NEGATIVE); Cocaine NEGATIVE (NEGATIVE); METHAMPHETAM NEGATIVE (NEGATIVE); Methadone NEGATIVE (NEGATIVE); Opiates NEGATIVE (NEGATIVE); Phencyclidine NEGATIVE (NEGATIVE); THC Cannibis NEGATIVE (NEGATIVE)
[2022-01-22] MEDS ORDERED: METOPROLOL TAR 50 MG TAB ONE (16:41)
[2022-01-22 16:46] LABS: ALT/SGPT 12 U/L (12-78); AST/SGOT 5 U/L (15-37); Albumin 3.9 g/dL (3.4-5.0); Alkaline Phosphatase 62 U/L (45-117); BUN Blood Urea Nitrogen 12 mg/dL (7-18); Bicarbonate 27 mmol/L (21-32); Bilirubin Direct 0.1 mg/dL (0-0.2); Bilirubin Total 0.5 mg/dL (0.2-1.0); Glomerular Filtration Rate 119 ml/min (=/>90); Glucose Level 85 mg/dL (74-106); Lipase 96 U/L (73-393); Magnesium 2.3 mg/dL (1.8-2.4); NT PRO-BNP 38 pg/mL (<125); Potassium 3.8 mmol/L (3.5-5.1); Protein, Total 7.7 g/dL (6.4-8.2); Sodium Level 142 mmol/L (136-145)
[2022-01-22 16:51] LABS: Urine Specific Gravity/Preg 1.015 (1.005-1.030)
[2022-01-22 17:03] LABS: Troponin High Sensitivity < 3.0 pg/mL (<58.9)
--- NOTE | 2022-01-22 17:32 | RAD REPORT ---
EXAM DESCRIPTION: CT - Chest For Pe Angio - 01/22/2022 5:25 pm CLINICAL HISTORY: Chest pain. dyspnea COMPARISON: No comparisons TECHNIQUE: CT angiogram of the pulmonary arteries was performed with MIP. All CT scans are performed using dose optimization technique as appropriate and may include automated exposure control or mA/KV adjustment according to patient size. FINDINGS: No evidence of pulmonary thromboembolism. No acute aortic finding demonstrated. The lungs are clear. No significant pericardial or pleural fluid. No concerning bony finding. IMPRESSION: No evidence of pulmonary thromboembolism. No acute lung findings.
--- NOTE | 2022-01-22 17:34 | EDPHYS ---
Physician Documentation [facility] Name: Sam Barbour Age: 31 yrs Sex: Female : 1990 Arrival Date: 01/22/2022 Time: 14:54 Bed 20 Private MD: LJ Physician Demond López HPI: 01/22 16:34 This 31 yrs old Female presents to ER via Ambulatory with complaints of marcelo Palpitations. 16:34 The patient presents with a history of heart racing. Context: The symptoms occur at marcelo rest, with light activity. Onset: The symptoms/episode began/occurred 5 day(s) ago. Duration: The patient or guardian reports multiple episodes, that wax and wane, with no pattern. Modifying factors: The symptoms are aggravated by nothing. The symptoms are alleviated by nothing. Associated signs and symptoms: The patient has no apparent associated signs or symptoms. Severity of symptoms: At their worst the symptoms were mild in the emergency department the symptoms are unchanged. The patient has experienced similar episodes in the past, multiple times. PHYSICIAN: 15:02 LMP N/A - Irregular menses ph Historical: - Allergies: 15:01 No Known Allergies; ph - PMHx: 15:01 pre eclampsia; ph - PSHx: 15:01 section; ph 15:02 fallopian tubes removed; ph - Immunization history:: Adult Immunizations unknown. - Social history:: Smoking status: Patient denies any tobacco usage or history of. - Family history:: not pertinent. - Hospitalizations: : No recent hospitalization is reported. ROS: 16:34 Constitutional: Negative for fever, chills, and weight loss, Eyes: Negative for injury, marcelo pain, redness, and discharge, ENT: Negative for injury, pain, and discharge, Neck: Negative for injury, pain, and swelling, Abdomen/GI: Negative for abdominal pain, nausea, vomiting, diarrhea, and constipation, Back: Negative for injury and pain, : Negative for injury, bleeding, discharge, and swelling, MS/Extremity: Negative for injury and deformity, Skin: Negative for injury, rash, and discoloration, Neuro: Negative for headache, weakness, numbness, tingling, and seizure, Psych: Negative for depression, anxiety, suicide ideation, homicidal ideation, and hallucinations, Allergy/Immunology: Negative for hives, rash, and allergies, Endocrine: Negative for neck swelling, polydipsia, polyuria, polyphagia, and marked weight changes, Hematologic/Lymphatic: Negative for swollen nodes, abnormal bleeding, and unusual bruising. 16:34 Cardiovascular: Positive for chest pain, palpitations. 16:34 Respiratory: Positive for shortness of breath. Exam: 16:34 Constitutional: This is a well developed, well nourished patient who is awake, alert, marcelo and in no acute distress. Head/Face: Normocephalic, atraumatic. Eyes: Pupils equal round and reactive to light, extra-ocular motions intact. Lids and lashes normal. Conjunctiva and sclera are non-icteric and not injected. Cornea within normal limits. Periorbital areas with no swelling, redness, or edema. ENT: Nares patent. No nasal discharge, no septal abnormalities noted. Tympanic membranes are normal and external auditory canals are clear. Oropharynx with no redness, swelling, or masses, exudates, or evidence of obstruction, uvula midline. Mucous membranes moist. Neck: Trachea midline, no thyromegaly or masses palpated, and no cervical lymphadenopathy. Supple, full range of motion without nuchal rigidity, or vertebral point tenderness. No Meningismus. Chest/axilla: Normal chest wall appearance and motion. Nontender with no deformity. No lesions are appreciated. Cardiovascular: Regular rate and rhythm with a normal S1 and S2. No gallops, murmurs, or rubs. Normal PMI, no JVD. No pulse deficits. Respiratory: Lungs have equal breath sounds bilaterally, clear to auscultation and percussion. No rales, rhonchi or wheezes noted. No increased work of breathing, no retractions or nasal flaring. Abdomen/GI: Soft, non-tender, with normal bowel sounds. No distension or tympany. No guarding or rebound. No evidence of tenderness throughout. Pelvic Exam: Normal external genitalia. Speculum exam with closed cervical os, no discharge or bleeding noted. Bimanual exam with normal adnexa, no adnexal or cervical motion tenderness. Normal uterus. Skin: Warm, dry with normal turgor. Normal color with no rashes, no lesions, and no evidence of cellulitis. MS/ Extremity: Pulses equal, no cyanosis. Neurovascular intact. Full, normal range of motion. Neuro: Awake and alert, GCS 15, oriented to person, place, time, and situation. Cranial nerves II-XII grossly intact. Motor strength 5/5 in all extremities. Sensory grossly intact. Cerebellar exam normal. Normal gait. Psych: Awake, alert, with orientation to person, place and time. Behavior, mood, and affect are within normal limits. 16:34 ECG was reviewed by the Attending Physician. 16:46 Musculoskeletal/extremity: DVT Exam: No signs of deep vein thrombosis. no pain, no marcelo swelling, no tenderness, negative Homans' sign noted on exam, no appreciated bluish discoloration, no erythema, no increased warmth, no trauma, no stasis, no hcs. Vital Signs: 14:59 BP 141 / 95; Pulse 125; Resp 18; Temp 97.4; Pulse Ox 99% on R/A; Weight 81.19 kg; ph Height 5 ft. 7 in. (170.18 cm); 15:45 BP 118 / 72; Pulse 75; Resp 14; Temp 98.5(O); Pulse Ox 100% on R/A; Pain 0/10; eh3 16:45 BP 128 / 84; Pulse 92; Resp 18; Pulse Ox 100% on R/A; eh3 17:45 BP 111 / 75; Pulse 75; Resp 16; Pulse Ox 100% on R/A; eh3 14:59 Body Mass Index 28.04 (81.19 kg, 170.18 cm) ph MDM: 15:22 Patient medically screened. marcelo 16:36 DONATO Risk Score: Total Score = 0. Differential diagnosis: arrythmia, dehydration, marcelo stress disorder. Data reviewed: vital signs, nurses notes, lab test result(s), EKG, radiologic studies, CT scan, plain films. 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 Test interpretation: by ED physician or midlevel provider: ECG, plain radiologic studies. Counseling: I had a detailed discussion with the patient and/or guardian regarding: the historical points, exam findings, and any diagnostic results supporting the discharge/admit diagnosis, lab results, radiology results, the need for outpatient follow up, for definitive care, a water trainer, a family practitioner. 01/22 15:22 Order name: Basic Metabolic Panel; Complete Time: 17:11 marcelo 01/22 15:22 Order name: CBC with Diff; Complete Time: 16:56 [facility] 01/22 15:22 Order name: LFT's; Complete Time: 17:11 [facility] 01/22 15:22 Order name: Magnesium; Complete Time: 17:11 [facility] 01/22 15:22 Order name: NT PRO-BNP; Complete Time: 17:11 [facility] 01/22 15:22 Order name: Troponin HS; Complete Time: 17:11 [facility] 01/22 15:22 Order name: XRAY Chest (1 view); Complete Time: 16:33 [facility] 01/22 15:22 Order name: UDS; Complete Time: 16:38 [facility] 01/22 15:22 Order name: TSH; Complete Time: 17:11 [facility] 01/22 15:22 Order name: Lipase; Complete Time: 17:11 [facility] 01/22 16:20 Order name: Urine Dipstick-Ancillary; Complete Time: 16:33 EDMS 01/22 16:34 Order name: CT Chest For PE Angio [facility] 01/22 16:36 Order name: Urine --Ancillary (enter results); Complete Time: 16:56 01/22 15:22 Order name: EKG; Complete Time: 15:23 [facility] 01/22 15:22 Order name: Cardiac monitoring; Complete Time: 16:22 [facility] 01/22 15:22 Order name: EKG - Nurse/Tech; Complete Time: 16:22 [facility] 01/22 15:22 Order name: IV Saline Lock; Complete Time: 16:22 [facility] 01/22 15:22 Order name: Labs collected and sent; Complete Time: 16:23 [facility] 01/22 15:22 Order name: O2 Per Protocol; Complete Time: 16:23 [facility] 01/22 15:22 Order name: O2 Sat Monitoring; Complete Time: 16:23 [facility] 01/22 15:22 Order name: Urine Dipstick-Ancillary (obtain specimen); Complete Time: 16:23 [facility] 01/22 15:22 Order name: Urine Test (obtain specimen); Complete Time: 16:23 [facility] EC:34 Rate is 79 beats/min. Rhythm is regular. QRS [place] is Normal. [place] interval is normal. QRS marcelo interval is normal. QT interval is normal. No Q waves. T waves are Normal. No ST changes noted. Clinical impression: Normal ECG and No evidence of ischemia. Interpreted by me. Reviewed by me. Administered Medications: 15:58 Drug: NS 0.9% 1000 ml Route: IV; Rate: 1 bolus; Site: right antecubital; 3 16:42 Drug: Lopressor (metoprolol TARTRATE) 50 mg Route: PO; 3 17:35 Follow up: Response: No adverse reaction [facility] Disposition Summary: 01/22/22 17:34 Discharge Ordered Location: Home marcelo Problem: new marcelo Symptoms: have improved marcelo Condition: Stable marcelo Diagnosis - Palpitations marcelo - Tachycardia, unspecified marcelo Followup: marcelo - With: Private Physician - When: 2 - 3 days - Reason: Recheck today's complaints, Continuance of care, Re-evaluation by your physician Followup: marcelo - With: - When: 2 - 3 days - Reason: Recheck today's complaints, Re-evaluation by your physician Discharge Instructions: - Discharge Summary Sheet marcelo - Palpitations marcelo - Aspirin and Your Heart marcelo - Palpitations, [id number] marcelo - Sinus Tachycardia marcelo Forms: - Medication Reconciliation Form marcelo - Thank You Letter marcelo - Antibiotic Education marcelo - Prescription Opioid Use marcelo Prescriptions: - Toprol XL 25 mg Oral Tablet - take 1 tablet by ORAL route once daily; 20 tablet; Refills: 0, Product marcelo Selection Permitted Signatures: Dispatcher [employer] Demond Gill MD MD cha Hall, Patricia RN RN Lacie Young RN RN 3
--- NOTE | 2022-01-22 17:34 | ER ---
Nurse's Notes [facility] Name: Sam Barbour Age: 31 yrs Sex: Female : 1990 Arrival Date: 01/22/2022 Time: 14:54 Bed 20 Private MD: Diagnosis: Palpitations;Tachycardia, unspecified Presentation: 01/22 14:59 Chief complaint: Patient states: Episodes of palpitations for approx 1 month, also ph reports dizziness that is intermittent, hx of hyperthyroid during last but is not currently on thyroid medication. Coronavirus screen: Vaccine status: Patient reports receiving the 2nd dose of the covid vaccine. Ebola Screen: No symptoms or risks identified at this time. Initial Sepsis Screen: Does the patient meet any 2 criteria? No. Patient's initial sepsis screen is negative. Does the patient have a suspected source of infection? No. Patient's initial sepsis screen is negative. Risk Assessment: Do you want to hurt yourself or someone else? Patient reports no desire to harm self or others. Onset of symptoms was January 22, 2022. 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 - Social history:: Smoking status: Patient denies any tobacco usage or history of. - Family history:: not pertinent. - Hospitalizations: : No recent hospitalization is reported. Screenin:45 Abuse screen: Denies threats or abuse. Denies injuries from another. Nutritional eh3 screening: No deficits noted. Tuberculosis screening: No symptoms or risk factors identified. Fall Risk None identified. Assessment: 15:45 General: Appears in no apparent distress. comfortable, Behavior is calm, cooperative, eh3 appropriate for age. Pain: Denies pain. Neuro: Level of Consciousness is awake, alert, obeys commands, Oriented to person, place, time, situation. Cardiovascular: Capillary refill < 3 seconds Patient's skin is warm and dry. Respiratory: Airway is patent Respiratory effort is even, unlabored, Respiratory pattern is regular, symmetrical. GI: No signs and/or symptoms were reported involving the gastrointestinal system. Abdomen is round non-distended. : No signs and/or symptoms were reported regarding the genitourinary system. : Urine is clear. EENT: No signs and/or symptoms were reported regarding the EENT system. Derm: No deficits noted. No signs and/or symptoms reported regarding the dermatologic system. Musculoskeletal: No signs and/or symptoms reported regarding the musculoskeletal system. Circulation, motion, and sensation intact. Range of motion: intact in all extremities. 16:45 Reassessment: Patient appears in no apparent distress at this time. Patient and/or 3 family updated on plan of care and expected duration. Pain level reassessed. Patient is alert, oriented x 3, equal unlabored respirations, skin warm/dry/pink. 17:45 Reassessment: Patient appears in no apparent distress at this time. Patient and/or 3 family updated on plan of care and expected duration. Pain level reassessed. Patient is alert, oriented x 3, equal unlabored respirations, skin warm/dry/pink. Vital Signs: 14:59 BP 141 / 95; Pulse 125; Resp 18; Temp 97.4; Pulse Ox 99% on R/A; Weight 81.19 kg; ph Height 5 ft. 7 in. (170.18 cm); 15:45 BP 118 / 72; Pulse 75; Resp 14; Temp 98.5(O); Pulse Ox 100% on R/A; Pain 0/10; eh3 16:45 BP 128 / 84; Pulse 92; Resp 18; Pulse Ox 100% on R/A; eh3 17:45 BP 111 / 75; Pulse 75; Resp 16; Pulse Ox 100% on R/A; eh3 14:59 Body Mass Index 28.04 (81.19 kg, 170.18 cm) ph Vitals: 15:45 Cardiac Rhythm Assessment Sinus rhythm. 3 ED Course: 14:54 Patient arrived in ED. rg4 15:01 Triage completed. ph 15:02 Arm band placed on. ph 15:21 Demond López MD is Attending Physician. marcelo 15:44 Lacie Young, JAH is Primary Nurse. eh3 15:45 Patient has correct armband on for positive identification. Bed in low position. Call [facility] light in reach. Side rails up X2. Client placed on continuous cardiac and pulse oximetry monitoring. NIBP monitoring applied. Door closed. Noise minimized. Warm blanket given. 15:58 XRAY Chest (1 view) In Process Unspecified. EDMS 15:58 Inserted saline lock: 20 gauge in right antecubital area, using aseptic technique. eh3 Blood collected. Patient maintains SpO2 saturation greater than 95% on room air. 16:23 Basic Metabolic Panel Sent. eh3 16:23 CBC with Diff Sent. eh3 16:23 LFT's Sent. eh3 16:23 Magnesium Sent. eh3 16:23 NT PRO-BNP Sent. eh3 16:23 Troponin HS Sent. eh3 16:23 UDS Sent. eh3 16:23 TSH Sent. eh3 16:23 Lipase Sent. eh3 17:26 CT Chest For PE Angio In Process Unspecified. EDMS 17:34 Bryan Larson MD is Referral Physician. [facility] 17:36 No provider procedures requiring assistance completed. eh3 17:37 IV discontinued, intact, bleeding controlled, No redness/swelling at site. Pressure eh3 dressing applied. Administered Medications: 15:58 Drug: NS 0.9% 1000 ml Route: IV; Rate: 1 bolus; Site: right antecubital; eh3 16:42 Drug: Lopressor (metoprolol TARTRATE) 50 mg Route: PO; eh3 17:35 Follow up: Response: No adverse reaction eh3 Medication: 17:36 VIS not applicable for this client. eh3 Outcome: 17:34 Discharge ordered by . [facility] 17:57 Discharged to home ambulatory. eh3 17:57 Condition: stable 17:57 Discharge instructions given to patient, Instructed on discharge instructions, follow up and referral plans. medication usage, Demonstrated understanding of instructions, follow-up care, medications, Prescriptions given X 1. 18:04 Patient left the ED. 3 Signatures: Dispatcher [employer] EDMS Demond López MD MD cha Hall, Patricia, RN RN Lizzette Hernandez [facility] Lacie Young RN RN 3
[2022-01-22 18:41] VITALS: TEMP 98.5; O2SAT 100
[2022-01-22 18:43] VITALS: BP 111/75
--- NOTE | 2022-01-23 15:30 | EKG ---
Test Date: 2022-01-22 Test Time: 15:58:30 Product Management Internship: COLBY MEASUREMENT RESULTS: Intervals: Rate: 79 CT: 158 QRSD: 84 QT: 372 QTc: 426 Ayer: P: 76 CT: 158 QRS: 93 T: 52 INTERPRETIVE STATEMENTS: Normal sinus rhythm Rightward axis Low voltage QRS Borderline ECG Compared to ECG 12/28/2021 19:18:19 Low QRS voltage now present ST (T wave) deviation no longer present Prolonged QT interval no longer present Electronically Signed On 01-23-22 15:28:12 PET ADOPTION COUNSELOR by Sachin Jones
== END 2022-01-22 18:04 | disposition home or self-care (01) ==
LOC: ER 14:50
DX: R00.0 Tachycardia, unspecified (principal)
CPT/HCPCS: 93005; 85025; 80048; 36415; 83735; 81025; 80076; 84443; 81003; 84484; 83690; 83880; 80307; 71275; 71045; 99284; Q9967; J7030